=== PATIENT | male | born 1990 | race Caucasian/White ===

== ENCOUNTER 2024-03-06 11:35 | Emergency (ER) | payer SELFPAY | END 2024-03-06 14:23 | disposition home or self-care (01) | LOC: JD.ED 11:35 | DX: S40.012A Contusion of left shoulder, initial encounter (principal); F17.210 Nicotine dependence, cigarettes, uncomplicated; V86.99XA Unspecified occupant of other special all-terrain or other off-road motor vehicle injured in nontraffic accident, initial encounter | CPT/HCPCS: 73030-26-LT; 73030-LT; 99284 ==